=== PATIENT | male | born 1960 | race Caucasian/White ===

== ENCOUNTER → 2018-04-25 | Outpatient (CLI) | payer MEDICARE, MEDICAID | LOC: M.WC 03:47 | DX: L89.312 Pressure ulcer of right buttock, stage 2 (principal); G80.9 Cerebral palsy, unspecified ==

== ENCOUNTER → 2018-05-03 | Outpatient (CLI) | payer MEDICARE, MEDICAID | LOC: M.WC 01:51 | DX: L89.312 Pressure ulcer of right buttock, stage 2 (principal); G80.9 Cerebral palsy, unspecified ==

== ENCOUNTER → 2018-05-16 | Outpatient (CLI) | payer MEDICARE, MEDICAID | LOC: M.WC 03:22 | DX: L89.312 Pressure ulcer of right buttock, stage 2 (principal); G80.9 Cerebral palsy, unspecified ==